=== PATIENT | female | born 1980 ===

== ENCOUNTER 2018-03-17 19:38 | Emergency (ER) | payer OTHER ==
[2018-03-17 19:45] VITALS: BP 154/98; PULSE 99; RESP 18; TEMP 98.4; O2SAT 99
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
--- NOTE | 2018-03-18 07:27 | RAD ---
PROCEDURE: Left Knee Radiographs. HISTORY: Pain. COMPARISON: None. FINDINGS: BONES: No acute fracture or destructive bony lesion identified. JOINTS: Mild medial compartment narrowing suggests limited degenerative joint disease. Remaining joint compartments appear unremarkable. JOINT EFFUSION: Trace suprapatellar bursa effusion is in question. OTHER FINDINGS: None. IMPRESSION: No acute fracture or dislocation. Limited degenerative changes seen at the medial femorotibial compartment with trace suprapatellar bursa effusion in question.
--- NOTE | 2018-03-18 08:43 | CT ---
PROCEDURE: CT HEAD WITHOUT CONTRAST. HISTORY: headache COMPARISON: None available. TECHNIQUE: Axial computed tomography images were obtained through the head/brain without intravenous contrast. Coronal and sagittal reconstructed images. Radiation dose: Total exam DLP = 718.07 mGy-cm. This CT exam was performed using one or more of the following dose reduction techniques: Automated exposure control, adjustment of the mA and/or kV according to patient size, and/or use of iterative reconstruction technique. FINDINGS: HEMORRHAGE: No intracranial hemorrhage. BRAIN: No mass effect or edema. No atrophy or chronic microvascular ischemic changes. VENTRICLES: Unremarkable. No hydrocephalus. CALVARIUM: Unremarkable. PARANASAL SINUSES: Unremarkable as visualized. No significant inflammatory changes. MASTOID AIR CELLS: Unremarkable as visualized. No inflammatory changes. OTHER FINDINGS: None. IMPRESSION: Normal CT of the Head. Concordant results (preliminary interpretation) provided by [facility]. Procedure Completed: 21:06 Preliminary ([facility]) Report: Dictated and Authenticated: 21:23 Final Interpretation: 08:41 March 18, 2018.
== END 2018-03-17 22:08 | disposition home or self-care (01) ==
LOC: H.ER 19:38
DX: S09.90XA Unspecified injury of head, initial encounter (principal); S80.02XA Contusion of left knee, initial encounter; W19.XXXA Unspecified fall, initial encounter; Y92.410 Unspecified street and highway as the place of occurrence of the external cause